=== PATIENT | female | born 1950 | race Caucasian/White ===

== ENCOUNTER 2019-10-15 10:58 | Inpatient (IN) | payer OTHER ==
[2019-10-15] MEDS: traMADol HCL 50 MG TABLET PO PRN (11:55)
[2019-10-15] MEDS ORDERED: traMADol HCL 50 MG TABLET PO ONE (12:58)
[2019-10-15] MEDS ORDERED: traMADol HCL 50 MG TABLET ONE ×2 (13:11→23:19)
--- NOTE | 2019-10-15 13:35 | PDOC ---
History of Present Illness - General Chief Complaint: Pain Stated Complaint: BODY PAIN Time Seen by Provider: 10/15/19 12:42 History Source: Patient Exam Limitations: No Limitations - History of Present Illness Initial Comments: 10/15/19 13:11 68 yo female pmh of acromegaly, HTN, hyperthyroidism and diffuse arthritis presents to the ED for left shoulder pain and bilateral knee pain. Pt states the pain is of the same quality but worsening intensity as past arthritis flares which she gets in her bilateral knees, shoulders and lower back. Pt states she use to get steroid injections every few months for pain however, pt lost insurance recently, can not have injections and was told by PCP to come to the hospital for admission and dispo to rehab. Pt admits to a fall a few days ago without hitting her head, no new neck pain/ headaches, denies LOC, weakness/sensory deficits, CP, SOB, abdominal pain, changes in bowel or bladder habits, F/C/N/V. Past History - Past Medical History Allergies/Adverse Reactions: Allergies Allergy/AdvReac Type Severity Reaction Status Date / Time hydromorphone HCl Allergy Verified 10/15/19 11:19 [From Dilaudid] Home Medications: Ambulatory Orders Amlodipine Bes/Olmesartan Med [Anju 10-40 mg Tablet] 1 each PO DAILY 05/20/16 Aspirin [ASA -] 81 mg PO DAILY 05/20/16 Famotidine [Pepcid -] 40 mg PO DAILY 10/16/19 Labetalol HCl [Normodyne -] 50 mg PO BID 10/16/19 Methimazole 5 mg PO DAILY 10/16/19 COPD: No Diabetes: Yes HTN: Yes Thyroid Disease: Yes Other medical history: ACROMEGALY - Surgical History Cholecystectomy: Yes - Psycho Social/Smoking Cessation Hx Smoking History: Never smoked Have you smoked in the past 12 months: No Hx Alcohol Use: No Drug/Substance Use Hx: No Substance Use Type: None Hx Substance Use Treatment: No Review of Systems - Review of Systems Constitutional: Yes: See HPI HEENTM: Yes: See HPI Respiratory: Yes: See HPI Cardiac (ROS): Yes: See HPI ABD/GI: Yes: See HPI : Yes: See HPI Musculoskeletal: Yes: See HPI Integumentary: Yes: See HPI Neurological: Yes: See HPI *Physical Exam - Vital Signs Last Vital Signs Temp Pulse Resp BP Pulse Ox 97 F L 82 18 144/74 98 10/15/19 11:16 10/15/19 11:16 10/15/19 11:16 10/15/19 11:16 10/15/19 11:16 - Physical Exam General Appearance: Yes: Nourished, Appropriately Dressed. No: Apparent Distress HEENT: positive: EOMI Neck: positive: Supple. negative: Carotid bruit Respiratory/Chest: positive: Lungs Clear, Normal Breath Sounds. negative: Respiratory Distress, Accessory Muscle Use, Rapid RR, Crackles, Rales, Rhonchi, Stridor, Wheezing Cardiovascular: positive: Regular Rhythm, Regular Rate, S1, S2. negative: Edema , JVD, Murmur Vascular Pulses: Dorsalis-Pedis (R): 3+, Doralis-Pedis (L): 3+ Gastrointestinal/Abdominal: positive: Flat, Soft. negative: Pulsatile Mass, Protuberent, Distended, Guarding, Rebound, Tenderness Musculoskeletal: negative: CVA Tenderness Extremity: positive: Normal Capillary Refill, Normal Inspection Integumentary: positive: Normal Color, Dry, Warm ED Treatment Course - LABORATORY CBC & Chemistry Diagram: 10/16/19 06:00 10/16/19 06:00 - RADIOLOGY Radiology Studies Ordered: Category Date Time Status SHOULDER-LEFT [RAD] Stat Radiology 10/15/19 13:02 Ordered Medical Decision Making - Medical Decision Making 68 yo female pmh of acromegaly, HTN, hyperthyroidism and diffuse arthritis presents to the ED for left shoulder pain and bilateral knee pain. Pt states the pain is of the same quality but worsening intensity as past arthritis flares which she gets in her bilateral knees, shoulders and lower back. Pt states she use to get steroid injections every few months for pain however, pt lost insurance recently, can not have injections and was told by PCP to come to the hospital for admission and dispo to rehab. Pt admits to a fall a few days ago without hitting her head, no new neck pain/ headaches, denies LOC, weakness/sensory deficits, CP, SOB, abdominal pain, changes in bowel or bladder habits, F/C/N/V. Pt states she is prescribed Tramadol but does not take it because it makes her tired vitals WNL L shoulder X ray ordered due to excessive and worsening pain. No fracture or displacement noted Pt given home dosed tramadol in the ED Admission labs completed, ekg and CXR completed S/O given to Dr. Yi dunham PA Discharge - Discharge Information Problems reviewed: Yes Clinical Impression/Diagnosis: Arthritis Condition: Stable - Admission Yes - Follow up/Referral - Patient Discharge Instructions - Post Discharge Activity
[2019-10-15 13:52] LABS: BASO % 1.2 % (0-2.0); EOS % 2.4 % (0-4.5); HEMATOCRIT 34.9 % (32.4-45.2); HEMOGLOBIN 11.1 GM/dL (10.7-15.3); LYMPH % 16.6 % (8-40); MCH 27.7 pg (25.7-33.7); MCHC 31.9 g/dl (32.0-36.0); MEAN CELL VOLUME 86.7 fl (80-96); MEAN PLT VOLUME 9.8 fl (7.5-11.1); MONO % 6.8 % (3.8-10.2); PLATELET COUNT 350 K/MM3 (134-434); RBC 4.02 M/mm3 (3.60-5.2); RDW 16.8 % (11.6-15.6); WHITE BLOOD COUNT 8.5 K/mm3 (4.0-10.0)
[2019-10-15 14:03] LABS: INR 0.95 (0.83-1.09); PROTHROMBIN TIME (PATIENT) 11.2 SEC (9.7-13.0)
[2019-10-15 14:24] LABS: ALBUMIN 3.7 g/dl (3.4-5.0); BILIRUBIN,TOTAL 0.5 mg/dL (0.2-1); BLOOD UREA NITROGEN 18.1 mg/dL (7-18); CALCIUM 9.8 mg/dL (8.5-10.1); CREATININE 1.1 mg/dL (0.55-1.3); POTASSIUM 5.2 mmol/L (3.5-5.1); TOT PROT 7.6 g/dl (6.4-8.2)
--- NOTE | 2019-10-15 15:50 | HP ---
Admitting History and Physical - Primary Care Physician PCP: Isabella Richmond - Admission Chief Complaint: bilateral shoulder and bilateral knee pain History of Present Illness: 68 year old female with PMH DM, diffuse arthritis, HTN, hyperthyroidism , acromegaly presents to the ED with diffuse pain. she states she saw Dr. Richmond in office last tuesday, everything was ok. she was prescribed tramadol for home pain but has refused to take it, it makes her too sleepy. she reports she used to have injections for pain control, however theres been an insurance issue and she is not eligible for injections anymore. she uses a cane and/or walker at home, lives with her daughter. she denies chest pains, pressure, n/v/ d. she is ammenable to go to [facility] if needed. History Source: Patient Limitations to Obtaining History: No Limitations - Past Medical History Cardiovascular: Yes: HTN Gastrointestinal: Yes: GERD Musculoskeletal: Yes: Osteoarthritis Endocrine: Yes: Diabetes Mellitus, Other (Acromegaly) - Past Surgical History Past Surgical History: Yes: None - Smoking History Smoking history: Never smoked Have you smoked in the past 12 months: No - Alcohol/Substance Use Hx Alcohol Use: No - Social History History of Recent Travel: No Home Medications - Allergies Allergies/Adverse Reactions: Allergies Allergy/AdvReac Type Severity Reaction Status Date / Time hydromorphone HCl Allergy Verified 10/15/19 11:19 [From Dilaudid] - Home Medications Home Medications: Ambulatory Orders Amlodipine Bes/Olmesartan Med [Anju 10-40 mg Tablet] 1 each PO DAILY 05/20/16 Aspirin [ASA -] 81 mg PO DAILY 05/20/16 Carvedilol [Coreg -] 25 mg PO BID 05/20/16 Furosemide [Lasix -] 20 mg PO DAILY 05/20/16 Omeprazole 40 mg PO DAILY 05/20/16 Sitagliptin Phosphate [Januvia] 100 mg PO DAILY 05/20/16 Sucralfate Oral Suspension [Carafate *Oral Susp*] 1 gm PO QID #400 ml 05/20/16 Review of Systems - Review of Systems Constitutional: reports: Weakness HENT: reports: No Symptoms Cardiovascular: reports: No Symptoms Respiratory: reports: No Symptoms Gastrointestinal: reports: No Symptoms Genitourinary: reports: No Symptoms Musculoskeletal: reports: Extremity Pain, Joint Pain Integumentary: reports: No Symptoms Neurological: reports: No Symptoms Endocrine: reports: No Symptoms Hematology/Lymphatic: reports: No Symptoms Psychiatric: reports: No Symptoms Physical Examination Vital Signs: Vital Signs Temperature 97 F L 10/15/19 11:16 Pulse Rate 82 10/15/19 11:16 Respiratory Rate 18 10/15/19 11:16 Blood Pressure 144/74 10/15/19 11:16 O2 Sat by Pulse Oximetry (%) 98 10/15/19 11:16 Constitutional: Yes: Well Nourished, No Distress HENT: Yes: Atraumatic, Normocephalic Neck: Yes: Supple Cardiovascular: Yes: Regular Rate and Rhythm Respiratory: Yes: Regular, CTA Bilaterally Gastrointestinal: Yes: Normal Bowel Sounds, Soft Musculoskeletal: Yes: Joint Stiffness, Joint Swelling, Muscle Weakness Integumentary: Yes: WNL Neurological: Yes: Alert, Oriented Labs: CBC, BMP 10/15/19 13:14 10/15/19 13:14 Imaging - Results Chest X-ray: Report Reviewed X-ray: Report Reviewed Problem List - Problems (1) Intractable pain Assessment/Plan: pain consult trial of tramadol lidocaine patches Code(s): R52 - PAIN, UNSPECIFIED (2) Diabetes mellitus Assessment/Plan: monitor glucose sliding scale check a1c Code(s): E11.9 - TYPE 2 DIABETES MELLITUS WITHOUT COMPLICATIONS Qualifiers: Diabetes mellitus type: type 2 Diabetes mellitus complication status: without complication Qualified Code(s): E11.9 - Type 2 diabetes mellitus without complications (3) GERD (gastroesophageal reflux disease) Assessment/Plan: cont home meds Code(s): K21.9 - GASTRO-ESOPHAGEAL REFLUX DISEASE WITHOUT ESOPHAGITIS Qualifiers: Esophagitis presence: without esophagitis Qualified Code(s): K21.9 - Gastro -esophageal reflux disease without esophagitis (4) Hypertension Assessment/Plan: cont home meds Code(s): I10 - ESSENTIAL (PRIMARY) HYPERTENSION (5) Arthritis Assessment/Plan: PT/OT eval pain control Code(s): M19.90 - UNSPECIFIED OSTEOARTHRITIS, UNSPECIFIED SITE
--- NOTE | 2019-10-15 16:09 | PDOC ---
Documentation entered by John Alamo SCRIBE, acting as scribe for Sudhir Gilliam MD. Sudhir Gilliam MD: This documentation has been prepared by the Jasmeet motta Xhesika, SCRIBE, under my direction and personally reviewed by me in its entirety. I confirm that the documentation accurately reflects all work, treatment, procedures, and medical decision making performed by me. Attending Attestation - Resident Resident Name: Frandy Macdonald - ED Attending Attestation I have performed the following: I have examined & evaluated the patient, The case was reviewed & discussed with the resident, I agree w/resident's findings & plan, Exceptions are as noted - HPI HPI: 10/15/19 14:00 The patient is a 68 year old female, with a significant past medical history of HTN, diabetes, acromegaly, gallstones, GERD/gastritis and diffuse arthritis who presents to the ED referred by Dr. Richmond for admission for pain management. The patient reports worsening bilateral knee pain and L shoulder pain. The patient states she has been getting joint steroid injections but had to stop due to insurance issues. The patient denies chest pain, shortness of breath, and dizziness. Denies fever , chills, cough, nausea, vomiting, and constipation. Denies dysuria, frequency, urgency and hematuria. Allergies: Hydromorphone HCL PCP: Dr. Isabella Richmond GI: Dr. Asif Corona Pain Management: Dr. Nunez - Physicial Exam PE: 10/15/19 14:01 Vitals: Triage Vital signs reviewed General Appearance: no acute distress, well nourished well developed, Neck: Supple;No Nuchal rigidity Chest Wall: Nontender Cardiac: Regular rate and rhythm, no murmurs, no rubs, no gallops, Lungs: Clear to auscultation bilateral, good air movement bilaterally, Extremities: + L shoulder pain with ROM. - Medical Decision Making 10/15/19 16:09 Patient sent to the emergency department for chronic pain not being managed by home pain medications and placement to SNF We will admit to service of Dr. traore for further management.
[2019-10-15] MEDS ORDERED: INSULIN (NOVOLOG) ASPART 100 UNITS/ML 10ML VIAL SQ SCH (16:30)
[2019-10-15] MEDS ORDERED: SUCRALFATE 1 GM TABLET (FP) ONE (17:21)
[2019-10-15] MEDS: SUCRALFATE 1 GM/10 ML UNIT DOSE CUPS PO SCH (17:24)
[2019-10-15] MEDS: INSULIN SLIDING SCALE (NOVOLOG) 1 VIAL SQ SCH ×2 (17:26→23:07)
[2019-10-15] MEDS ORDERED: CARVEDILOL 12.5 MG TABLET (FP) ONE (22:42)
[2019-10-15] MEDS ORDERED: HEPARIN NA (PORCINE) 5,000 UNITS/ML 1ML VIAL ONE (22:42)
[2019-10-15] MEDS: HEPARIN NA (PORCINE) 5,000 UNITS/ML 1ML VIAL SQ SCH (23:07)
[2019-10-15] MEDS: CARVEDILOL 25 MG TABLET (FP) PO SCH (23:07)
[2019-10-16] MEDS: SUCRALFATE 1 GM/10 ML UNIT DOSE CUPS PO SCH ×5 (00:04→22:50)
[2019-10-16] MEDS ORDERED: PNEUMOC 13-VAL CONJ-DIP CRM/PF 0.5 ML DISP.SYRIN IM ONE (05:32)
[2019-10-16] MEDS ORDERED: traMADol HCL 50 MG TABLET ONE (06:00)
[2019-10-16] MEDS: traMADol HCL 50 MG TABLET PO PRN ×2 (06:04→18:37)
[2019-10-16 06:32] LABS: BASO % 0.6 % (0-2.0); EOS % 2.6 % (0-4.5); HEMATOCRIT 32.9 % (32.4-45.2); HEMOGLOBIN 10.6 GM/dL (10.7-15.3); LYMPH % 18.8 % (8-40); MCH 27.9 pg (25.7-33.7); MCHC 32.1 g/dl (32.0-36.0); MEAN CELL VOLUME 86.9 fl (80-96); MEAN PLT VOLUME 9.4 fl (7.5-11.1); PLATELET COUNT 314 K/MM3 (134-434); RBC 3.79 M/mm3 (3.60-5.2); RDW 16.3 % (11.6-15.6); WHITE BLOOD COUNT 7.7 K/mm3 (4.0-10.0)
[2019-10-16] MEDS: INSULIN SLIDING SCALE (NOVOLOG) 1 VIAL SQ SCH ×4 (06:42→22:57)
[2019-10-16] MEDS ORDERED: sitaGLIPtin PHOSPHATE 50 MG TABLET PO SCH (07:00)
[2019-10-16 07:07] LABS: ALBUMIN 3.6 g/dl (3.4-5.0); BILIRUBIN,TOTAL 0.9 mg/dL (0.2-1); BLOOD UREA NITROGEN 25.2 mg/dL (7-18); CALCIUM 9.4 mg/dL (8.5-10.1); CREATININE 1.3 mg/dL (0.55-1.3); POTASSIUM 5.2 mmol/L (3.5-5.1); TOT PROT 7.1 g/dl (6.4-8.2)
--- NOTE | 2019-10-16 09:41 | EKG ---
Test Reason : Blood Pressure : / mmHG Vent. Rate : 067 BPM Atrial Rate : 067 BPM P-R Int : 146 ms QRS Dur : 068 ms QT Int : 370 ms P-R-T Axes : 026 028 043 degrees QTc Int : 390 ms POOR DATA QUALITY, INTERPRETATION MAY BE ADVERSELY AFFECTED NORMAL SINUS RHYTHM CANNOT RULE OUT ANTERIOR INFARCT , AGE UNDETERMINED ABNORMAL ECG WHEN COMPARED WITH ECG OF 20-MAY-2016 20:32, NO SIGNIFICANT CHANGE WAS FOUND Confirmed by Jonel Levine MD ([id number]) on 10/16/2019 9:41:02 AM Referred By: Confirmed By:Jonel Levine MD
--- NOTE | 2019-10-16 09:48 | PN ---
Progress Note, Physician - Current Medication List Current Medications: Active Medications Amlodipine Besylate (Norvasc -) 10 mg PO DAILY [facility] Aspirin (Asa -) 81 mg PO DAILY [facility] Carvedilol (Coreg -) 25 mg PO BID [facility] Last Admin: 10/15/19 23:07 Dose: 25 mg Furosemide (Lasix -) 20 mg PO DAILY [facility] Heparin Sodium (Porcine) (Heparin -) 5,000 unit SQ BID [facility] Last Admin: 10/15/19 23:07 Dose: 5,000 unit Insulin Aspart (Novolog Vial Sliding Scale -) 1 vial SQ ACHS [facility]; Protocol Last Admin: 10/16/19 06:42 Dose: Not Given Lidocaine (Lidoderm Patch -) 2 patch TP DAILY [facility] Lidocaine (Lidoderm Patch -) 2 patch TP DAILY [facility] Losartan Potassium (Cozaar -) 100 mg PO DAILY [facility] Miscellaneous (Lidoderm Patch Removal) 1 each MC DAILY@2200 [facility] Miscellaneous (Lidoderm Patch Removal) 1 each MC DAILY@2200 [facility] Pantoprazole Sodium (Protonix -) 40 mg PO DAILY [facility] Pneumococcal 13-Valent Conj Vacc (Prevnar 13 Syringe -) 0.5 ml IM .ONCE ONE Stop: 10/16/19 05:33 Sitagliptin Phosphate (Januvia -) 100 mg PO ACBK [facility] Last Admin: 10/16/19 06:48 Dose: Not Given Sucralfate (Carafate Oral Suspension -) 1 gm PO QID [facility] Last Admin: 10/16/19 00:04 Dose: 1 gm Tramadol HCl (Ultram -) 25 mg PO Q6H PRN PRN Reason: PAIN LEVEL 7 - 10 Last Admin: 10/16/19 06:04 Dose: 25 mg - Objective Vital Signs: Vital Signs Temperature 98.0 F 10/16/19 05:16 Pulse Rate 73 10/16/19 05:16 Respiratory Rate 20 10/16/19 05:16 Blood Pressure 136/83 10/16/19 05:16 O2 Sat by Pulse Oximetry (%) 96 10/16/19 05:16 Cardiovascular: Yes: S1, S2 Respiratory: Yes: Regular, CTA Bilaterally Gastrointestinal: Yes: Normal Bowel Sounds, Soft Musculoskeletal: Yes: Back Pain, Joint Stiffness. No: Joint Swelling Neurological: Yes: Alert, Oriented, Weakness Labs: CBC, BMP 10/16/19 06:00 10/16/19 06:00 INR, PTT INR 0.95 (0.83-1.09) 10/15/19 13:14 Assessment/Plan - Problems (1) Intractable pain Assessment/Plan: pain consult trial of tramadol lidocaine patches Rheumotolgy consult--?PMR start cymbalta esr crp Code(s): R52 - PAIN, UNSPECIFIED (2) Diabetes mellitus Assessment/Plan: monitor glucose sliding scale check a1c Code(s): E11.9 - TYPE 2 DIABETES MELLITUS WITHOUT COMPLICATIONS Qualifiers: Diabetes mellitus type: type 2 Diabetes mellitus complication status: without complication Qualified Code(s): E11.9 - Type 2 diabetes mellitus without complications (3) GERD (gastroesophageal reflux disease) Assessment/Plan: cont home meds Code(s): K21.9 - GASTRO-ESOPHAGEAL REFLUX DISEASE WITHOUT ESOPHAGITIS Qualifiers: Esophagitis presence: without esophagitis Qualified Code(s): K21.9 - Gastro -esophageal reflux disease without esophagitis (4) Hypertension Assessment/Plan: cont home meds Code(s): I10 - ESSENTIAL (PRIMARY) HYPERTENSION (5) Arthritis Assessment/Plan: PT/OT eval pain control Code(s): M19.90 - UNSPECIFIED OSTEOARTHRITIS, UNSPECIFIED SITE
[2019-10-16] MEDS: LIDOCAINE 5% TOPICAL PATCH TP SCH ×2 (09:49)
[2019-10-16] MEDS: ASPIRIN 81 MG CHEWABLE TABLETS PO SCH (09:51)
[2019-10-16] MEDS: LOSARTAN POTASSIUM 50 MG TABLET (FP) PO SCH (09:51)
[2019-10-16] MEDS: CARVEDILOL 25 MG TABLET (FP) PO SCH (09:51)
[2019-10-16] MEDS: PANTOPRAZOLE 40 MG TABLET PO SCH (09:51)
[2019-10-16] MEDS: amLODIPine BESYLATE 10 MG TABLET (FP) PO SCH (09:51)
[2019-10-16] MEDS: HEPARIN NA (PORCINE) 5,000 UNITS/ML 1ML VIAL SQ SCH ×2 (09:52→22:51)
[2019-10-16] MEDS ORDERED: DULoxetine HCL 30 MG CAPSULE.DR PO SCH (10:00)
[2019-10-16] MEDS ORDERED: FUROSEMIDE 20 MG TABLET (FP) PO SCH (10:00)
[2019-10-16] MEDS: LABETALOL HCL 100 MG TABLET (FP) PO SCH ×2 (12:08→22:50)
[2019-10-16] MEDS: METHIMAZOLE 10 MG TABLET (FP) PO SCH (12:08)
--- NOTE | 2019-10-16 13:34 | CONSULT ---
Consult Consult Specialty:: PM&R Dr Vallejo for Dr Salinas - History of Present Illness Chief Complaint: L>R shoulder, LB, B wrist, B knee pain History of Present Illness: This is a 68 year old woman with a medical history of acromegaly, HTN, GERD, hyperthyroidism, DM, diffuse OA, who presented to the ED 10/15/2019 with diffuse ongoing uncontrolled pain. 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 She has had multiple shoulder/ knee and lumbar HUSEYIN injections in the past but they no longer work. Steroids and chiropractics no longer work either. She has not tried PT. Physiatry is being consulted for further recommendations. - Past Medical History Cardio/Vascular: Yes: HTN Gastrointestinal: Yes: GERD ...: No Musculoskeletal: Yes: Osteoarthritis Endocrine: Yes: Diabetes Mellitus, Other (Acromegaly) - Past Surgical History Past Surgical History: Yes: None - Alcohol/Substance Use Hx Alcohol Use: No - Smoking History Smoking history: Never smoked Have you smoked in the past 12 months: No - Social History Usual Living Arrangement: With Child (with dtr in apartment with stairs, uses [place] ) History of Recent Travel: No Home Medications - Allergies Allergies/Adverse Reactions: Allergies Allergy/AdvReac Type Severity Reaction Status Date / Time hydromorphone HCl Allergy Verified 10/15/19 11:19 [From Dilaudid] - Home Medications Home Medications: Ambulatory Orders Amlodipine Bes/Olmesartan Med [Anju 10-40 mg Tablet] 1 each PO DAILY 05/20/16 Aspirin [ASA -] 81 mg PO DAILY 05/20/16 Famotidine [Pepcid -] 40 mg PO DAILY 10/16/19 Labetalol HCl [Normodyne -] 50 mg PO BID 10/16/19 Methimazole 5 mg PO DAILY 10/16/19 Review of Systems Findings/Remarks: Denies fevers, chills, changes in vision/ hearing/ mood, CP, SOB, abdominal pain , nausea, vomiting, diarrhea, dysuria, numbness/ paresthesias BUE/ BLE. Notes diffuse joint pains, gastritis, and chronic intermittent constipation. Physical Exam Vital Signs: Vital Signs Temperature 98.0 F 10/16/19 10:00 Pulse Rate 94 H 10/16/19 10:00 Respiratory Rate 20 10/16/19 10:00 Blood Pressure 146/83 10/16/19 10:00 O2 Sat by Pulse Oximetry (%) 96 10/16/19 05:16 Musculoskeletal: Yes: Other (calm obese HF sitting EOB NAD, AAO x3; R shoulder flexion to 120 degrees, L shoulder flexion to 75 degrees, 4/5 BUE 2/2 pain, 4/5 B HF then 4+/5 BLE, Pinprick Intact BUE/ BLE; +L elbow/ B knee crepitus; no BLE pitting edema, no B calf tenderness, +L shoulder/ L knee lidoderm patches in place) Labs: CBC, BMP 10/16/19 06:00 10/16/19 06:00 Imaging - Results X-ray: Report Reviewed (L shoulder XR +OA wthout acute pathology) Assessment/Plan Impression: 1) Deficits mobility/ ADLs 2) Deconditioning 3) Gait abnormality 4) Diffuse OA causing pain 5) hx acromegaly 6) hx HTN 7) hx GERD 8) hx hyperthyroidism 9) DM 10) Obesity 11) Up to date flu shot/ pneumovax Recommendations: 1) PT for stretching strengthening ROM and functional mobility 2) Falls, safety precautions 3) Cardiac, diabetic precautions 4) Heat/ TENS/ US neck/ B shoulders/ low back/ B knees prn. Trial lumbar corset , B knee braces. 5) Bowel regimen prn 6) DVT ppx: hep sc 7) Nutrition consult for obesity 8) Continue Lidoderm patches, Tramadol and Cymbalta; injections no longer working, no NSAIDs/ steroids as they no longer work per patient and 2/2 gastritis 9) Pending Rheum consult 10) Continue plan per primary team 11) Discharge planning: consider short- course inpatient rehabilitation for pain control and functional mobility, as she reports she has to climb up her stairs on her hands and knees due to pain Thank you for this referral.
--- NOTE | 2019-10-16 14:42 | CON.ORTH ---
Consult Reason for Consultation:: b/l shoulder pain, b/l knee pain, LBP - Past Medical History Cardio/Vascular: Yes: HTN Gastrointestinal: Yes: GERD ...: No Musculoskeletal: Yes: Osteoarthritis Endocrine: Yes: Diabetes Mellitus, Other (Acromegaly) - Past Surgical History Past Surgical History: Yes: None - Alcohol/Substance Use Hx Alcohol Use: No - Smoking History Smoking history: Never smoked Have you smoked in the past 12 months: No - Social History Usual Living Arrangement: With Child (with dtr in apartment with stairs, uses [place] ) History of Recent Travel: No Home Medications - Allergies Allergies/Adverse Reactions: Allergies Allergy/AdvReac Type Severity Reaction Status Date / Time hydromorphone HCl Allergy Verified 10/15/19 11:19 [From Dilaudid] - Home Medications Home Medications: Ambulatory Orders Amlodipine Bes/Olmesartan Med [Anju 10-40 mg Tablet] 1 each PO DAILY 05/20/16 Aspirin [ASA -] 81 mg PO DAILY 05/20/16 Famotidine [Pepcid -] 40 mg PO DAILY 10/16/19 Labetalol HCl [Normodyne -] 50 mg PO BID 10/16/19 Methimazole 5 mg PO DAILY 10/16/19 Physical Exam for Ortho Vital Signs: Vital Signs Temperature 98.3 F 10/16/19 14:07 Pulse Rate 76 10/16/19 14:07 Respiratory Rate 20 10/16/19 14:07 Blood Pressure 166/79 10/16/19 14:07 O2 Sat by Pulse Oximetry (%) 99 10/16/19 09:00 Labs: CBC, BMP 10/16/19 06:00 10/16/19 06:00 INR, PTT INR 0.95 (0.83-1.09) 10/15/19 13:14 - Upper Extremity Shoulder: Yes: Left, Right, Pain, Other (+ neer, + hakwins, nvi) - Lower Extremity Knee: Yes: Left, Right, Limited ROM, Pain, Swelling, Tenderness, Other (nvi) Imaging - Results X-ray: Image Reviewed Assessment/Plan 68 year old woman with a medical history of acromegaly, HTN, GERD, hyperthyroidism, DM, diffuse OA, who presented to the ED 10/15/2019 with diffuse ongoing uncontrolled pain. 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 She has had multiple shoulder/ knee and lumbar HUSEYIN injections in the past but they no longer work. Steroids and chiropractics no longer work either. She has not tried PT. Physiatry is being consulted for further recommendations. a/p B/l shoulder, b/l knee, LS spine OA Physiatry consult Rheum consult PT, wbat nesbitt control If pain does not improve will consider injection therapy d/w Dr. Woods
--- NOTE | 2019-10-16 16:56 | CONSULT ---
Consult Consult Specialty:: Rheumatology - History of Present Illness History of Present Illness: 68 year old female with PMH of DM, HTN, hyperthyroidism, acromegaly (treated surgically in 2005) and s/p traumatic fracture of both wrist treated surgically in 1985, admitted with pain in shoulders and knees. HPI. The patient reports a 1 year history of pain in both shoulders and both knees. The shoulder pain is related to activity and she has difficulty in raising her arms above her shoulders. The knee pain is also related to activity , it has been managed with steroid injections every 3 months and at the present time she is significantly limited in her walking, she only walks for room to room at home. Laboratory work-up revealed ESR of 50 and CRP 1.1 (N<-0.3) creatinine 1.3 and eGFR 42. X rays of the left shoulder had poor technique, the joint space cannot be appreciated. - History Source History Provided By: Patient, Medical Record - Past Medical History Cardio/Vascular: Yes: HTN Gastrointestinal: Yes: GERD ...: No Musculoskeletal: Yes: Osteoarthritis Endocrine: Yes: Diabetes Mellitus, Other (Acromegaly) - Past Surgical History Past Surgical History: Yes: None - Alcohol/Substance Use Hx Alcohol Use: No - Smoking History Smoking history: Never smoked Have you smoked in the past 12 months: No - Social History Usual Living Arrangement: With Child (with dtr in apartment with stairs, uses [place] ) History of Recent Travel: No Home Medications - Allergies Allergies/Adverse Reactions: Allergies Allergy/AdvReac Type Severity Reaction Status Date / Time hydromorphone HCl Allergy Verified 10/15/19 11:19 [From Dilaudid] - Home Medications Home Medications: Ambulatory Orders Amlodipine Bes/Olmesartan Med [Anju 10-40 mg Tablet] 1 each PO DAILY 05/20/16 Aspirin [ASA -] 81 mg PO DAILY 05/20/16 Famotidine [Pepcid -] 40 mg PO DAILY 10/16/19 Labetalol HCl [Normodyne -] 50 mg PO BID 10/16/19 Methimazole 5 mg PO DAILY 10/16/19 Review of Systems - Review of Systems Constitutional: reports: Malaise Eyes: reports: No Symptoms HENT: reports: No Symptoms Neck: reports: No Symptoms Cardiovascular: reports: No Symptoms Respiratory: reports: No Symptoms Gastrointestinal: reports: No Symptoms Musculoskeletal: reports: Other (See HPI) Physical Exam Vital Signs: Vital Signs Temperature 98.3 F 10/16/19 14:07 Pulse Rate 76 10/16/19 14:07 Respiratory Rate 20 10/16/19 14:07 Blood Pressure 166/79 10/16/19 14:07 O2 Sat by Pulse Oximetry (%) 99 10/16/19 09:00 Constitutional: Yes: Moderate Distress Eyes: Yes: WNL HENT: Yes: WNL Neck: Yes: WNL Cardiovascular: Yes: WNL Respiratory: Yes: WNL Gastrointestinal: Yes: WNL Musculoskeletal: Yes: Other (Tenderness in both shoudlers, mainly over the grater tuberosity on extension of the joint, suggestive of rotator cuff tendoitis. Both knees were tender and had no effusion. No other active joints.) Labs: CBC, BMP 10/16/19 06:00 10/16/19 06:00 Laboratory Tests 10/16/19 10/16/19 10/16/19 06:00 11:02 11:02 ESR 50 H C-Reactive Protein 1.1 H TSH 1.06 Problem List - Problems (1) Polymyalgia rheumatica Assessment/Plan: Bilateral shoulder pain with ROM limitation and elevation of ESR and CRP. Rule out polymyalgia rheumatica, rule out bilateral rotator cuff tendonitis. Plan. Prednisone 15 mg/d. Code(s): M35.3 - POLYMYALGIA RHEUMATICA (2) Osteoarthritis of knee, unspecified Assessment/Plan: Osteoarthritis in knees, evaluate damage. Mondragon: X rays of knees. Code(s): M17.9 - OSTEOARTHRITIS OF KNEE, UNSPECIFIED
[2019-10-16] MEDS: predniSONE 5 MG TABLET (UD) PO SCH ×2 (18:36→19:21)
[2019-10-16] MEDS ORDERED: INSULIN (NOVOLOG) ASPART 100 UNITS/ML 10ML VIAL ONE (22:40)
[2019-10-16] MEDS: LIDOCAINE PATCH REMOVAL MC SCH ×2 (22:52)
[2019-10-17] MEDS: INSULIN SLIDING SCALE (NOVOLOG) 1 VIAL SQ SCH ×4 (05:59→23:01)
--- NOTE | 2019-10-17 09:57 | PN ---
Progress Note, Physician History of Present Illness: Probable polymyalgia rheumatica.. Yesterday started on Prednisone 15 mg/d. At the present time the patient reports improvement in pain in shoulders, she is walking much better and improvement in general malaise. No new labs available X rays of knees pending - Current Medication List Current Medications: Active Medications Amlodipine Besylate (Norvasc -) 10 mg PO DAILY [facility] Last Admin: 10/16/19 09:51 Dose: 10 mg Aspirin (Asa -) 81 mg PO DAILY [facility] Last Admin: 10/16/19 09:51 Dose: 81 mg Heparin Sodium (Porcine) (Heparin -) 5,000 unit SQ BID [facility] Last Admin: 10/16/19 22:51 Dose: Not Given Insulin Aspart (Novolog Vial Sliding Scale -) 1 vial SQ [facility]; Protocol Last Admin: 10/17/19 05:59 Dose: Not Given Labetalol HCl (Normodyne -) 50 mg PO BID [facility] Last Admin: 10/16/19 22:50 Dose: 50 mg Lidocaine (Lidoderm Patch -) 2 patch TP DAILY [facility] Last Admin: 10/16/19 09:49 Dose: 1 patch Lidocaine (Lidoderm Patch -) 2 patch TP DAILY [facility] Last Admin: 10/16/19 09:49 Dose: 1 patch Losartan Potassium (Cozaar -) 100 mg PO DAILY [facility] Last Admin: 10/16/19 09:51 Dose: 100 mg Methimazole (Tapazole -) 5 mg PO DAILY [facility] Last Admin: 10/16/19 12:08 Dose: 5 mg Miscellaneous (Lidoderm Patch Removal) 1 each MC DAILY@2200 [facility] Last Admin: 10/16/19 22:52 Dose: 1 each Miscellaneous (Lidoderm Patch Removal) 1 each [facility] DAILY@2200 [facility] Last Admin: 10/16/19 22:52 Dose: 1 each Pantoprazole Sodium (Protonix -) 40 mg PO DAILY [facility] Last Admin: 10/16/19 09:51 Dose: 40 mg Prednisone (Deltasone -) 15 mg PO DAILY [facility] Stop: 10/18/19 10:01 Last Admin: 10/16/19 19:21 Dose: Not Given Prednisone (Deltasone -) 10 mg PO DAILY [facility] Stop: 10/25/19 10:01 Prednisone (Deltasone -) 7.5 mg PO DAILY [facility] Stop: 11/01/19 10:01 Prednisone (Deltasone -) 5 mg PO DAILY [facility] Stop: 11/08/19 10:01 Sucralfate (Carafate Oral Suspension -) 1 gm PO QID [facility] Last Admin: 10/16/19 22:50 Dose: 1 gm Tramadol HCl (Ultram -) 25 mg PO Q6H PRN PRN Reason: PAIN LEVEL 7 - 10 Last Admin: 10/16/19 18:37 Dose: 25 mg - Objective Vital Signs: Vital Signs Temperature 98.0 F 10/17/19 06:09 Pulse Rate 91 H 10/17/19 06:09 Respiratory Rate 10/17/19 06:09 Blood Pressure 150/84 10/17/19 06:09 O2 Sat by Pulse Oximetry (%) 99 10/16/19 21:00 Constitutional: Yes: Mild Distress Eyes: Yes: WNL HENT: Yes: WNL Cardiovascular: Yes: WNL Respiratory: Yes: WNL Gastrointestinal: Yes: WNL Musculoskeletal: Yes: Other (Improvement in tenderness and ROM in shoulders.) Labs: CBC, BMP 10/16/19 06:00 10/16/19 06:00 INR, PTT INR 0.95 (0.83-1.09) 10/15/19 13:14 Problem List - Problems (1) Polymyalgia rheumatica Code(s): M35.3 - POLYMYALGIA RHEUMATICA (2) Osteoarthritis of knee, unspecified Code(s): M17.9 - OSTEOARTHRITIS OF KNEE, UNSPECIFIED Assessment/Plan Probable polymyalgia rheumatica, improving. Continue schedule to DC Prednisone. Pending X ray of knees
[2019-10-17] MEDS ORDERED: PT OWN MED DRAWER 7, Y5N ONE (10:38)
[2019-10-17] MEDS ORDERED: ACETAMINOPHEN 325 MG TABLET (FP) PO PRN (10:45)
[2019-10-17] MEDS: LABETALOL HCL 100 MG TABLET (FP) PO SCH ×2 (10:46→23:00)
[2019-10-17] MEDS: LOSARTAN POTASSIUM 50 MG TABLET (FP) PO SCH ×2 (10:46→12:23)
[2019-10-17] MEDS ORDERED: traMADol HCL 50 MG TABLET PO PRN (10:46)
--- NOTE | 2019-10-17 10:46 | PN ---
Progress Note, Physician Chief Complaint: bilateral shoulder and bilateral knee pain History of Present Illness: NAD Sitting at the edge of the bed ambulatory to bathroom with cane Decreased ROM BL shoulders and knees - Current Medication List Current Medications: Active Medications Amlodipine Besylate (Norvasc -) 10 mg PO DAILY [facility] Last Admin: 10/16/19 09:51 Dose: 10 mg Aspirin (Asa -) 81 mg PO DAILY [facility] Last Admin: 10/16/19 09:51 Dose: 81 mg Heparin Sodium (Porcine) (Heparin -) 5,000 unit SQ BID [facility] Last Admin: 10/16/19 22:51 Dose: Not Given Insulin Aspart (Novolog Vial Sliding Scale -) 1 vial SQ [facility]S [facility]; Protocol Last Admin: 10/17/19 05:59 Dose: Not Given Labetalol HCl (Normodyne -) 50 mg PO BID [facility] Last Admin: 10/16/19 22:50 Dose: 50 mg Lidocaine (Lidoderm Patch -) 2 patch TP DAILY [facility] Last Admin: 10/16/19 09:49 Dose: 1 patch Lidocaine (Lidoderm Patch -) 2 patch TP DAILY [facility] Last Admin: 10/16/19 09:49 Dose: 1 patch Losartan Potassium (Cozaar -) 100 mg PO DAILY [facility] Last Admin: 10/16/19 09:51 Dose: 100 mg Methimazole (Tapazole -) 5 mg PO DAILY [facility] Last Admin: 10/16/19 12:08 Dose: 5 mg Miscellaneous (Lidoderm Patch Removal) 1 each MC DAILY@2200 [facility] Last Admin: 10/16/19 22:52 Dose: 1 each Miscellaneous (Lidoderm Patch Removal) 1 each MC DAILY@2200 [facility] Last Admin: 10/16/19 22:52 Dose: 1 each Pantoprazole Sodium (Protonix -) 40 mg PO DAILY [facility] Last Admin: 10/16/19 09:51 Dose: 40 mg Prednisone (Deltasone -) 15 mg PO DAILY [facility] Stop: 10/18/19 10:01 Last Admin: 10/16/19 19:21 Dose: Not Given Prednisone (Deltasone -) 10 mg PO DAILY [facility] Stop: 10/25/19 10:01 Prednisone (Deltasone -) 7.5 mg PO DAILY [facility] Stop: 11/01/19 10:01 Prednisone (Deltasone -) 5 mg PO DAILY [facility] Stop: 11/08/19 10:01 Sucralfate (Carafate Oral Suspension -) 1 gm PO QID [facility] Last Admin: 10/16/19 22:50 Dose: 1 gm Tramadol HCl (Ultram -) 25 mg PO Q6H PRN PRN Reason: PAIN LEVEL 7 - 10 Last Admin: 10/16/19 18:37 Dose: 25 mg - Objective Vital Signs: Vital Signs Temperature 98.0 F 10/17/19 06:09 Pulse Rate 91 H 10/17/19 06:09 Respiratory Rate 10/17/19 06:09 Blood Pressure 150/84 10/17/19 06:09 O2 Sat by Pulse Oximetry (%) 99 10/16/19 21:00 Constitutional: Yes: No Distress, Calm, Obese Cardiovascular: Yes: Regular Rate and Rhythm Respiratory: Yes: Regular Gastrointestinal: Yes: Normal Bowel Sounds, Soft Genitourinary: Yes: WNL Musculoskeletal: Yes: Joint Stiffness (BL shoulders+ BL knees), Muscle Weakness Edema: No Peripheral Pulses WNL: Yes Neurological: Yes: Alert, Oriented Psychiatric: Yes: Alert, Oriented Labs: CBC, BMP 10/16/19 06:00 10/16/19 06:00 INR, PTT INR 0.95 (0.83-1.09) 10/15/19 13:14 Problem List - Problems (1) Arthritis Problems reviewed: Yes Code(s): M19.90 - UNSPECIFIED OSTEOARTHRITIS, UNSPECIFIED SITE (2) Intractable pain Problems reviewed: Yes Code(s): R52 - PAIN, UNSPECIFIED (3) Polymyalgia rheumatica Assessment/Plan: -ESR elevated -Rheumatology on board -Physical therapy on board -Prednisone slow tapering dose -PPI -Pt agreeable to [facility] Problems reviewed: Yes Code(s): M35.3 - POLYMYALGIA RHEUMATICA (4) Diabetes mellitus Assessment/Plan: -Not on any oral hypoglycemics -A1c at 5.5 -However, continue dietary and lifestyle modification given the obesity, HTN,HL -Doesn't need BGM once off prednisone Problems reviewed: Yes Code(s): E11.9 - TYPE 2 DIABETES MELLITUS WITHOUT COMPLICATIONS Qualifiers: Diabetes mellitus type: type 2 Diabetes mellitus complication status: without complication Qualified Code(s): E11.9 - Type 2 diabetes mellitus without complications Assessment/Plan see problem list
[2019-10-17] MEDS: ASPIRIN 81 MG CHEWABLE TABLETS PO SCH (10:47)
[2019-10-17] MEDS: PANTOPRAZOLE 40 MG TABLET PO SCH (10:47)
[2019-10-17] MEDS: SUCRALFATE 1 GM/10 ML UNIT DOSE CUPS PO SCH ×5 (10:47→22:59)
[2019-10-17] MEDS: amLODIPine BESYLATE 10 MG TABLET (FP) PO SCH (10:47)
[2019-10-17] MEDS: HEPARIN NA (PORCINE) 5,000 UNITS/ML 1ML VIAL SQ SCH ×3 (10:47→22:59)
[2019-10-17] MEDS: predniSONE 5 MG TABLET (UD) PO SCH (10:47)
[2019-10-17] MEDS: LIDOCAINE 5% TOPICAL PATCH TP SCH ×2 (10:48)
[2019-10-17] MEDS: METHIMAZOLE 10 MG TABLET (FP) PO SCH (10:51)
[2019-10-17] MEDS: LIDOCAINE PATCH REMOVAL MC SCH ×2 (23:00)
[2019-10-18] MEDS: INSULIN SLIDING SCALE (NOVOLOG) 1 VIAL SQ SCH ×2 (06:07→11:32)
--- NOTE | 2019-10-18 08:24 | DS ---
Physical Examination Vital Signs: Vital Signs Temperature 97.6 F 10/18/19 06:00 Pulse Rate 93 H 10/18/19 06:00 Respiratory Rate 20 10/18/19 06:00 Blood Pressure 148/83 10/18/19 06:00 O2 Sat by Pulse Oximetry (%) 95 10/17/19 21:00 Cardiovascular: Yes: Regular Rate and Rhythm Respiratory: Yes: Regular, CTA Bilaterally Gastrointestinal: Yes: Normal Bowel Sounds, Soft Labs: CBC, BMP 10/16/19 06:00 10/16/19 06:00 Discharge Summary Problems reviewed: Yes Reason For Visit: ARTHRITIS Current Active Problems Arthritis (Acute) Intractable pain (Acute) Osteoarthritis of knee, unspecified (Acute) Polymyalgia rheumatica (Acute) Hospital Course: - Problems (1) Arthritis Problems reviewed: Yes Code(s): M19.90 - UNSPECIFIED OSTEOARTHRITIS, UNSPECIFIED SITE (2) Intractable pain Problems reviewed: Yes Code(s): R52 - PAIN, UNSPECIFIED (3) Polymyalgia rheumatica Assessment/Plan: -ESR elevated -Rheumatology on board -Physical therapy on board -Prednisone slow tapering dose -PPI -Pt agreeable to [facility] Problems reviewed: Yes Code(s): M35.3 - POLYMYALGIA RHEUMATICA (4) Diabetes mellitus Assessment/Plan: -Not on any oral hypoglycemics -A1c at 5.5 -However, continue dietary and lifestyle modification given the obesity, HTN,HL -Doesn't need BGM once off prednisone Problems reviewed: Yes Code(s): E11.9 - TYPE 2 DIABETES MELLITUS WITHOUT COMPLICATIONS Qualifiers: Diabetes mellitus type: type 2 Diabetes mellitus complication status: without complication Qualified Code(s): E11.9 - Type 2 diabetes mellitus without complications dc to SNF Condition: Stable - Instructions Referrals: Isabella Richmond MD [Primary Care Provider] - - Home Medications Comprehensive Discharge Medication List: Ambulatory Orders Amlodipine Bes/Olmesartan Med [Anju 10-40 mg Tablet] 1 each PO DAILY 05/20/16 Aspirin [ASA -] 81 mg PO DAILY 05/20/16 Famotidine [Pepcid -] 40 mg PO DAILY 10/16/19 Labetalol HCl [Normodyne -] 50 mg PO BID 10/16/19 Methimazole 5 mg PO DAILY 10/16/19 Acetaminophen [Tylenol .Regular Strength -] 650 mg PO Q4H PRN tablet 10/18/19 Heparin - 5,000 unit SQ BID vial 10/18/19 Insulin Sliding Scale [Novolog Vial Sliding Scale -] 1 vial SQ ACHS units 10/18 Lidocaine 5% Patch [Lidoderm -] 2 patch TP DAILY patch 10/18/19 Pantoprazole Sodium [Protonix -] 40 mg PO DAILY tablet.ec 10/18/19 predniSONE [Deltasone -] 5 mg PO DAILY tablet 10/18/19 predniSONE [Deltasone -] 7.5 mg PO DAILY tablet 10/18/19 predniSONE [Deltasone -] 10 mg PO DAILY tablet 10/18/19 traMADol HCL [Ultram -] 25 mg PO Q6H PRN tablet MDD 4 10/18/19
[2019-10-18] MEDS: ASPIRIN 81 MG CHEWABLE TABLETS PO SCH (09:33)
[2019-10-18] MEDS: HEPARIN NA (PORCINE) 5,000 UNITS/ML 1ML VIAL SQ SCH (09:33)
[2019-10-18] MEDS: PANTOPRAZOLE 40 MG TABLET PO SCH (09:33)
[2019-10-18] MEDS: predniSONE 5 MG TABLET (UD) PO SCH (09:34)
[2019-10-18] MEDS: LIDOCAINE 5% TOPICAL PATCH TP SCH ×2 (09:35)
[2019-10-18] MEDS: SUCRALFATE 1 GM/10 ML UNIT DOSE CUPS PO SCH ×2 (09:37→13:02)
[2019-10-18] MEDS: amLODIPine BESYLATE 10 MG TABLET (FP) PO SCH (09:37)
[2019-10-18] MEDS: LABETALOL HCL 100 MG TABLET (FP) PO SCH (09:38)
[2019-10-18] MEDS: METHIMAZOLE 10 MG TABLET (FP) PO SCH (10:03)
[2019-10-18] MEDS: LOSARTAN POTASSIUM 50 MG TABLET (FP) PO SCH (10:42)
[2019-10-18 11:04] VITALS: BMI 50.2
[2019-10-18 14:10] VITALS: BP 146/83; PULSE 84; TEMP 98
[2019-10-19] MEDS ORDERED: predniSONE 10 MG TABLET (UD) PO SCH (10:00)
[2019-10-26] MEDS ORDERED: predniSONE 2.5 MG TABLET PO SCH (10:00)
[2019-11-02] MEDS ORDERED: predniSONE 5 MG TABLET (UD) PO SCH (10:00)
== END 2019-10-18 15:25 | disposition home health service (06) | DRG 546 ==
LOC: JER 10:58 → JERBED 14:01 → OBSVTOIN 15:52 → JERBED 10-16 08:00 → J7W 10-16 14:32
PROVIDERS: ADMIT Family Medicine; ATTEND Family Medicine
DX: M35.3 Polymyalgia rheumatica (principal); Z68.43 Body mass index [BMI] 50.0-59.9, adult; M25.562 Pain in left knee; M25.561 Pain in right knee; M25.512 Pain in left shoulder; E05.90 Thyrotoxicosis, unspecified without thyrotoxic crisis or storm; I10 Essential (primary) hypertension; E22.0 Acromegaly and pituitary gigantism; E11.9 Type 2 diabetes mellitus without complications; E66.01 Morbid (severe) obesity due to excess calories; K21.9 Gastro-esophageal reflux disease without esophagitis; M19.90 Unspecified osteoarthritis, unspecified site; R52 Pain, unspecified; R26.89 Other abnormalities of gait and mobility; M15.9 Polyosteoarthritis, unspecified; M47.897 Other spondylosis, lumbosacral region
CPT/HCPCS: 36415; 71046-TC-FY; 73030-TC-LT-FY; 73562-TC-LT-FY; 73562-TC-RT-FY; 80053; 82550; 82962; 83036; 84443; 84484; 85025; 85610; 85651; 86140; 93005; 93010; 94010; 97116-GP; 97161-GP; 99285-25; G0378; J1644

== ENCOUNTER 2021-10-16 04:03 | Day surgery (SDC) | payer OTHER ==
[2021-10-15 14:05] VITALS: BMI 49.3
[2021-10-16] MEDS ORDERED: LIDOCAINE HCL/PF 1% SDV 5ML VIAL ONE (07:11)
[2021-10-16] MEDS ORDERED: LIDOCAINE HCL/PF 2% SDV 5ML VIAL ONE (07:13)
[2021-10-16] MEDS ORDERED: LIDOCAINE HCL 1% PRESERVATIVE FREE - 30ML VIAL IJ ONE ×3 (12:27)
[2021-10-16 14:02] VITALS: BP 158/70; PULSE 93; TEMP 97.2
== END 2021-10-16 14:45 | disposition home or self-care (01) ==
LOC: JASU-SURG 04:03
PROVIDERS: ATTEND Pain Medicine Pain Medicine
PROC: 01HY3MZ Insertion of Neurostimulator Lead into Peripheral Nerve, Percutaneous Approach (ICD-10-PCS; principal; 2021-10-16 12:30)
DX: G89.4 Chronic pain syndrome (principal); M25.561 Pain in right knee
CPT/HCPCS: 64555; C1778